=== PATIENT | male | born 2000 | race Caucasian/White ===

== ENCOUNTER 2024-11-25 22:49 | Emergency (ER) | payer OTHER ==
[2024-11-25] MEDS ORDERED: Dexamethasone/Tobramycin 0.1-0.3% Ophth Susp 2.5 ML Bottle EYEBOTH ONE (22:50)
[2024-11-25] MEDS: Ketorolac 30 MG/ML SDV IM ONE (23:27)
[2024-11-25] MEDS: hydrOXYzine HCl 50 MG/ML SDV IM ONE (23:28)
== END 2024-11-26 00:09 | disposition home or self-care (01) ==
LOC: FB.ED 22:49
DX: T65.91XA Toxic effect of unspecified substance, accidental (unintentional), initial encounter (principal); T26.91XA Corrosion of right eye and adnexa, part unspecified, initial encounter; Y99.0 Civilian activity done for income or pay; X58.XXXA Exposure to other specified factors, initial encounter
CPT/HCPCS: 96372; 99283; A9270; J1885; J3410